=== PATIENT | female | born 1995 | race Two or more races ===

== ENCOUNTER 2024-12-18 08:23 | Emergency (ER) | payer BC, OTHER ==
[2024-12-18 09:18] LABS: Specific Gravity 1.029 (1.005-1.030)
[2024-12-18 09:19] LABS: Specific Gravity 1.029 (1.005-1.030); Sqamous Epithelial <5 /HPF (None Seen); Urine Bacteria None Seen /HPF (<20); Urine Bilirubin NEGATIVE (Negative); Urine Blood Negative (Negative); Urine Clarity Turbid (Clear); Urine Color Yellow (Yellow); Urine Culture Reflex Order NOT NEEDED; Urine Glucose NEGATIVE (Negative); Urine Ketones NEGATIVE (Negative); Urine Microscopic Reflex YN ORDER UMIC; Urine Mucus 4+ /HPF (None Seen); Urine Nitrite NEGATIVE (Negative); Urine Protein TRACE (Negative); Urine RBC None Seen /HPF (None Seen); Urine Urobilinogen 1+ (Normal); Urine WBC <5 /HPF (<5); Urine pH 6.5 (5.0-7.0)
[2024-12-18 09:26] LABS: Absolute Eosinophils 0.1 K/uL (0-0.5); Absolute Lymphocytes (CBC) 2.1 K/uL (0.7-4.9); Absolute Monocytes 0.6 K/uL (0.1-1.3); Absolute Neutrophil 6.8 K/uL (1.8-8.0); Basophils % 0.4 % (0-1.3); Eosinophils % 0.6 % (0-4.4); Hematocrit 40.4 % (36.0-45.0); Hemoglobin 13.8 g/dL (12.0-15.0); Lymphocytes % 22.1 % (15.3-44.8); MCHC 34.1 g/dL (32.0-36.0); MCV 88.1 fL (80-100); MPV 8.9 fL (7.6-11.3); Monocytes % 6.5 % (3.3-12.3); Neutrophils % 70.4 % (41.7-73.7); Nucleated Red Blood Cells % 0.1 % (0-0); Platelets 311 thou/uL (152-406); RBC Red Blood Cell Count 4.59 M/uL (3.86-4.86); Red Cell Distribution Width 14.8 % (12.1-15.2)
[2024-12-18 09:37] LABS: Anion Gap 8.8 mEq/L (5.0-15.0); Potassium 3.8 mEq/L (3.5-5.1)
--- NOTE | 2024-12-18 09:49 | RAD REPORT ---
EXAMINATION: Transvaginal OB COMPARISON: None. HISTORY: VAGINAL BLEEDING TECHNIQUE: Real-time ultrasound was performed through the pelvis. A transvaginal scan was performed t o better visualize the intrauterine contents and adnexa. FINDINGS: The uterus is normal in size measuring 10.9 x 5.9 x 5.4 cm. Endometrium appears thickened measuring u p to 21 mm without evidence of gestational sac. Both ovaries are normal in size, shape and echotexture with normal blood flow. No evidence of torsion . No significant pelvic ascites. IMPRESSION: The endometrial stripe is thickened to 21 mm without evidence of a gestational sac or IUP. This can s till be a normal finding very early .In the setting of a positive hCG level, this would indicate of unknown location. Serial hCG level measurements and follow-up pelvic sonography in 7-10 days would be recommended.
--- NOTE | 2024-12-18 09:58 | EDPHYS ---
Physician Documentation [facility] Name: Ashley Quintero Age: 29 yrs Sex: Female : 1995 Arrival Date: 12/18/2024 Time: 08:23 Bed 6 Private MD: ED Physician Lisa Holloway HPI: 12/18 08:48 This 29 yrs old Female presents to ER via Ambulatory with complaints of Vaginal sp3 Bleeding, + Preg <12wks. 08:48 29-year-old female G3, with LMP 5 weeks ago presents with vaginal bleeding that sp3 started this morning after intercourse. She denies any other medical conditions or past medical history. Her prior 2 pregnancies were delivered via . She denies any fever, neck pain, URI symptoms, chest pain, shortness of breath, back pain, rash, significant abdominal pain, or any other signs or symptoms on ROS at this time. She states she took 6 test at home and they were all positive.. 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 - Infectious Disease History:: Denies. - Social history:: Smoking status: Patient denies any tobacco usage or history of. ROS: 08:48 Constitutional: Negative for fever, chills, and weight loss, Eyes: Negative for injury, sp3 pain, redness, and discharge, ENT: Negative for injury, pain, and discharge, Neck: Negative for injury, pain, and swelling, Cardiovascular: Negative for chest pain, palpitations, and edema, Respiratory: Negative for shortness of breath, cough, wheezing, and pleuritic chest pain, Abdomen/GI: Negative for abdominal pain, nausea, vomiting, diarrhea, and constipation, Back: Negative for injury and pain, MS/Extremity: Negative for injury and deformity, Skin: Negative for injury, rash, and discoloration, Neuro: Negative for headache, weakness, numbness, tingling, and seizure, Psych: Negative for depression, anxiety, suicide ideation, homicidal ideation, and hallucinations, 08:48 All other systems are negative, Exam: 08:49 Constitutional: This is a well developed, well nourished patient who is awake, alert, sp3 and in no acute distress. Head/Face: Normocephalic, atraumatic. Eyes: Pupils equal round and reactive to light, extra-ocular motions intact. Lids and lashes normal. Conjunctiva and sclera are non-icteric and not injected. Cornea within normal limits. Periorbital areas with no swelling, redness, or edema. Chest/axilla: Normal chest wall appearance and motion. Nontender with no deformity. No lesions are appreciated. Cardiovascular: Regular rate and rhythm with a normal S1 and S2. No gallops, murmurs, or rubs. Normal PMI, no JVD. No pulse deficits. Respiratory: Lungs have equal breath sounds bilaterally, clear to auscultation and percussion. No rales, rhonchi or wheezes noted. No increased work of breathing, no retractions or nasal flaring. Abdomen/GI: Soft, non-tender, with normal bowel sounds. No distension or tympany. No guarding or rebound. No evidence of tenderness throughout. Back: No spinal tenderness. No costovertebral tenderness. Full range of motion. Skin: Warm, dry with normal turgor. Normal color with no rashes, no lesions, and no evidence of cellulitis. MS/ Extremity: Pulses equal, no cyanosis. Neurovascular intact. Full, normal range of motion. Neuro: Awake and alert, GCS 15, oriented to person, place, time, and situation. Cranial nerves II-XII grossly intact. Motor strength 5/5 in all extremities. Sensory grossly intact. Cerebellar exam normal. Normal gait. Psych: Awake, alert, with orientation to person, place and time. Behavior, mood, and affect are within normal limits. 08:49 : No pain to the lower abdomen on palpation. Vaginal exam deferred to ultrasound. Patient is having very mild spotting only as reported by her., Vital Signs: 08:36 BP 130 / 95; Pulse 100; Resp 16; Pulse Ox 100% on R/A; Weight 77.11 kg; Height 5 ft. 5 iw in. ; 08:36 Body Mass Index 28.29 (77.11 kg, 165.1 cm) iw MDM: 08:42 Medical Screening Exam initiated sp3 08:49 Data reviewed: vital signs, nurses notes, old medical records, lab test result(s), sp3 radiologic studies. ED course: 29-year-old female with vaginal bleeding at 5 weeks . Differential diagnosis includes threatened , full miscarriage, menses, among others. Workup will include ultrasound transvaginal, laboratory values including quantitative hCG and general supportive care. Vital signs are currently normal. Patient is in no acute distress. Disposition pending workup patient course.. 09:50 ED course: hCG in the 300s with thickened stripe only on ultrasound. This is either sp3 early versus end of spontaneous miscarriage. Patient will need follow-up in 48 hours and follow-up with obstetrics.. 12/18 08:43 Order name: Abo/rh Typing; Complete Time: 09:38 sp3 12/18 08:43 Order name: Basic Metabolic Panel; Complete Time: 09:38 sp3 12/18 08:43 Order name: CBC with Diff; Complete Time: 09:38 sp3 12/18 08:43 Order name: Test, Urine; Complete Time: 09:38 sp3 12/18 08:43 Order name: Quantitative Hcg; Complete Time: 09:38 sp3 12/18 08:43 Order name: Urinalysis w/ reflexes; Complete Time: 09:38 sp3 12/18 08:43 Order name: US Transvaginal Ob; Complete Time: 09:50 sp3 12/18 08:43 Order name: IV Saline Lock; Complete Time: 09:13 sp3 12/18 08:43 Order name: Labs collected and sent; Complete Time: 09:13 sp3 12/18 08:43 Order name: NPO; Complete Time: 09:13 sp3 Administered Medications: No medications were administered Disposition Summary: 12/18/24 09:57 Discharge Ordered Notes: Location: Home sp3 Condition: Stable sp3 Diagnosis - Vaginal bleeding, threatened sp3 Followup: sp3 - With: Private Physician - When: Upon discharge from the Emergency Department - Reason: Continuance of care Discharge Instructions: - Threatened Miscarriage sp3 - Discharge Summary Sheet sb4 Forms: - Medication Reconciliation Form sp3 - Antibiotic Education sp3 - Prescription Opioid Use sp3 - Patient Portal Instructions sp3 - Leadership Thank You Letter sp3 Signatures: Dispatcher [employer] Fani Joseph RN RN toribio Lisa Holloway MD MD sp3 Corrections: (The following items were deleted from the chart) 08:43 08:43 ABO/RH TYPING+BB.LAB.BRZ ordered. EDMS EDMS 08:43 08:43 BASIC METABOLIC PANEL+C.LAB.BRZ ordered. EDMS EDMS 08:43 08:43 CBC+H.LAB.BRZ ordered. EDMS EDMS 08:43 08:43 Test, Urine+UC.LAB.BRZ ordered. EDMS EDMS 08:43 08:43 QUANTITATIVE HCG+C.LAB.BRZ ordered. EDMS EDMS 08:43 08:43 Urinalysis+U.LAB.BRZ ordered. EDMS EDMS 08:43 08:43 Transvaginal Ob+US.RAD.BRZ ordered. EDMS EDMS
--- NOTE | 2024-12-18 09:58 | ER ---
Nurse's Notes [facility] Name: Ashley Quintero Age: 29 yrs Sex: Female : 1995 Arrival Date: 12/18/2024 Time: 08:23 Bed 6 Private MD: Diagnosis: Vaginal bleeding, threatened Presentation: 12/18 08:36 Chief complaint: Patient states: yesterday had some cramping, worse last night, had iw some bleeding this morning, we had sex and right after I had some bleeding when I wiped , is almost 5 week , LMP was 3-7-25, . Coronavirus screen: At this time, the client does not indicate any symptoms associated with coronavirus-19. Ebola Screen: No symptoms or risks identified at this time. Initial Sepsis Screen: Does the patient meet any 2 criteria? No. Patient's initial sepsis screen is negative. Does the patient have a suspected source of infection? No. Patient's initial sepsis screen is negative. Risk Assessment: Do you want to hurt yourself or someone else? Patient reports no desire to harm self or others. Onset of symptoms was December 18, 2024. 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 - Infectious Disease History:: Denies. - Social history:: Smoking status: Patient denies any tobacco usage or history of. Screenin:09 [facility] ED Fall Risk Assessment (Adult) History of falling in the last 3 months, hb including since admission No falls in past 3 months (0 pts) Confusion or Disorientation No (0 pts) Intoxicated or Sedated No (0 pts) Impaired Gait No (0 pts) Mobility Assist Device Used No (0 pt) Altered Elimination No (0 pt) Score/Fall Risk Level 0 - 2 = Low Risk Oriented to surroundings, Maintained a safe environment, Educated pt \T\ family on fall prevention, incl call for assistance when getting out of bed. Abuse screen: Denies threats or abuse. Denies injuries from another. Nutritional screening: No deficits noted. Tuberculosis screening: No symptoms or risk factors identified. Assessment: 09:09 General: Appears in no apparent distress. Behavior is calm, cooperative. Pain: Denies hb pain. Neuro: Level of Consciousness is awake, alert, obeys commands, Oriented to person, place, time, situation. Cardiovascular: Patient's skin is warm and dry. Respiratory: Respiratory effort is even, unlabored, Respiratory pattern is regular, symmetrical. GI: No signs and/or symptoms were reported involving the gastrointestinal system. : Reports vaginal bleeding that is spotty. EENT: No signs and/or symptoms were reported regarding the EENT system. Derm: Skin is pink, warm \T\ dry. Musculoskeletal: No signs and/or symptoms reported regarding the musculoskeletal system. Vital Signs: 08:36 BP 130 / 95; Pulse 100; Resp 16; Pulse Ox 100% on R/A; Weight 77.11 kg; Height 5 ft. 5 iw in. ; 08:36 Body Mass Index 28.29 (77.11 kg, 165.1 cm) iw ED Course: 08:25 Patient arrived in ED. mr 08:38 Triage completed. iw 08:41 Lisa Holloway MD is Attending Physician. sp3 09:04 Initial lab(s) drawn, by me, sent to lab. Inserted saline lock: 22 gauge in right hb antecubital area, using aseptic technique. Blood collected. Flushed with 10 mL NS. 09:09 Patient has correct armband on for positive identification. Bed in low position. Call hb light in reach. Provided Education on: tests, result times . 09:42 US Transvaginal Ob In Process Unspecified. EDMS 10:08 No provider procedures requiring assistance completed. IV discontinued, intact, ph bleeding controlled, No redness/swelling at site. Pressure dressing applied. 10:08 Arm band placed on. ph Administered Medications: No medications were administered Medication: 09:09 VIS not applicable for this client. hb Outcome: 09:57 Discharge ordered by . sp3 10:08 Discharged to home ambulatory, with significant other, ph 10:08 Condition: good 10:08 Discharge instructions given to patient, Instructed on discharge instructions, follow up and referral plans. Demonstrated understanding of instructions, follow-up care, 10:08 Patient left the ED. ph Signatures: Dispatcher [employer] EDMS Barbara Rivera, Reg Reg mr Fani Graves, Cassandra Tam RN, RN RN ph Baxter, Heather, RN RN hb Patel, Setul, MD MD sp3
[2024-12-18 10:15] VITALS: BP 130/95; O2SAT 100
== END 2024-12-18 10:08 | disposition home or self-care (01) ==
LOC: ER 08:23
DX: O20.0 Threatened abortion (principal)
CPT/HCPCS: 36415; 76817; 80048; 81001; 81025; 84702; 85025; 86900; 86901; 99283

== ENCOUNTER 2024-12-22 18:14 | Emergency (ER) | payer OTHER ==
--- NOTE | 2024-12-22 19:38 | RAD REPORT ---
EXAMINATION: US Transvaginal OB COMPARISON: 12/18/2024. HISTORY: [facility] MAIN ABD PAIN Bed: TECHNIQUE: Real-time ultrasound was performed through the pelvis. A transvaginal scan was performed t o better visualize the intrauterine contents and adnexa. FINDINGS: There is a single living intrauterine , with small gestational sac along the left aspect. Trace fluid seen adjacent to this, which may be within the endometrial cavity versus a small subchori onic collection measuring 7 x 3 x 8 mm. Both ovaries are visualized and appear unremarkable. There is no free fluid in the cul-de-sac. Measurements and Calculations: Gestational sac mean diameter: 0.7 cm, consistent with a sonographic age of 5 weeks, 3 days. The suzanna ent's LMP dates are 11/25/2024. IMPRESSION: Single living intrauterine , with a composite sonographic age of 5 weeks, 3 days. Questionable trace fluid within the endometrium versus small subchorionic hemorrhage measuring up to 8 mm as above. Close clinical follow-up, and consideration of short-term follow-up ultrasound are recommended.
[2024-12-22 20:09] LABS: Specific Gravity 1.028 (1.005-1.030)
[2024-12-22 20:11] LABS: Specific Gravity 1.028 (1.005-1.030); Urine Bacteria <20 /HPF (<20); Urine Bilirubin NEGATIVE (Negative); Urine Blood Negative (Negative); Urine Clarity Extremely Turbid (Clear); Urine Color Yellow (Yellow); Urine Crystals Unidentified Few /HPF (None Seen); Urine Culture Reflex Order REFLEXED; Urine Glucose NEGATIVE (Negative); Urine Ketones NEGATIVE (Negative); Urine Microscopic Reflex YN ORDER UMIC; Urine Mucus 3+ /HPF (None Seen); Urine Nitrite NEGATIVE (Negative); Urine Protein 1+ (Negative); Urine RBC 21-50 /HPF (None Seen); Urine Urobilinogen 1+ (Normal); Urine WBC 20-50 /HPF (<5); Urine Yeast (Budding) Few /HPF (None Seen)
[2024-12-22 20:14] LABS: Absolute Basophils 0.1 K/uL (0-0.5); Absolute Lymphocytes (CBC) 2.5 K/uL (0.7-4.9); Absolute Monocytes 0.8 K/uL (0.1-1.3); Absolute Neutrophil 7.5 K/uL (1.8-8.0); Basophils % 1.2 % (0-1.3); Eosinophils % 0.1 % (0-4.4); Lymphocytes % 23.1 % (15.3-44.8); MCHC 34.3 g/dL (32.0-36.0); MCV 87.5 fL (80-100); MPV 8.2 fL (7.6-11.3); Monocytes % 7.5 % (3.3-12.3); Neutrophils % 68.1 % (41.7-73.7); Nucleated Red Blood Cells % 0.1 % (0-0); Platelets 367 thou/uL (152-406); RBC Red Blood Cell Count 4.68 M/uL (3.86-4.86); Red Cell Distribution Width 14.5 % (12.1-15.2)
[2024-12-22 20:42] LABS: Anion Gap 7.5 mEq/L (5.0-15.0); Potassium 3.5 mEq/L (3.5-5.1)
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
[2024-12-22 22:38] VITALS: TEMP 98.1; O2SAT 100
[2024-12-22 22:40] VITALS: BP 122/65
== END 2024-12-22 21:22 | disposition home or self-care (01) ==
LOC: ER 18:14
DX: O26.891 Other specified pregnancy related conditions, first trimester (principal); Z3A.01 Less than 8 weeks gestation of pregnancy; V49.40XA Driver injured in collision with unspecified motor vehicles in traffic accident, initial encounter
CPT/HCPCS: 36415; 76817; 80048; 81001; 81025; 84702; 85025; 86900; 86901; 87086; 87088